=== PATIENT | female | born 1980 | race Caucasian/White ===

== ENCOUNTER 2017-09-28 08:14 | Emergency (ER) | payer SELFPAY ==
[2017-09-28 08:34] VITALS: BP 145/90
--- NOTE | 2017-09-28 08:51 | UC ---
Cardiac HPI - HPI Summary HPI Summary: CHEST PAIN X 1 WEEK PAIN IS MID CHEST, NO RADIATION , MOSTLY AT NIGHT AND KEEPS HER UP , DIFFICULTY BREATHING NO FEVER, NO CHILLS, NO COUGH - History of Current Complaint Chief Complaint: UCGeneralIllness Stated Complaint: DIFFICULTY BREATHING Time Seen by Provider: 09/28/17 08:25 Hx Obtained From: Patient Hx Last Menstrual Period: "I don't get it with the Mirena." Onset/Duration: Gradual Onset, Lasting Weeks - 1, Still Present Timing: Intermittent Episodes Lasting: - FEW HRS Initial Severity: Moderate Current Severity: Moderate Chest Pain Location: Mid Sternal Character: Tightness Aggravating Factor(s): Nothing Alleviating Factor(s): Nothing Associated Signs & Symptoms: Positive: Chest Pain, Anxiety, SOB. Negative: Vision Changes, Recent Stress, Headaches, Numbness, Tingling, Weakness, Dizziness, Swelling, Syncope, Fever, Diaphoresis, Nausea/Vomiting, Palpitations , Cough, Hemoptysis, Back Pain, Abdominal Pain, Calf Pain/Swelling - Allergy/Home Medications Allergies/Adverse Reactions: Allergies Allergy/AdvReac Type Severity Reaction Status Date / Time Amoxicillin Allergy Severe vomiting,ra Verified 09/28/17 08:19 sh Erythromycin Allergy Severe vomiting, Verified 09/28/17 08:19 rash PMH/Surg Hx/FS Hx/Imm Hx Psychological History: Anxiety - Surgical History Surgical History: Yes Surgery Procedure, Year, and Place: Tubal Ligation, 2007 - Family History Known Family History: Negative: Diabetes - Social History Alcohol Use: None Substance Use Type: None Smoking Status (MU): Former Smoker When Did the Patient Quit Smoking/Using Tobacco: 11 years ago Review of Systems Constitutional: Negative Skin: Negative Eyes: Negative ENT: Negative Respiratory: Shortness Of Breath Cardiovascular: Chest Pain Gastrointestinal: Negative Genitourinary: Negative Is Patient Immunocompromised?: No All Other Systems Reviewed And Are Negative: Yes Physical Exam Triage Information Reviewed: Yes Appearance: Well-Appearing, No Pain Distress, Well-Nourished Vital Signs: Initial Vital Signs Temp 98.2 F 09/28/17 08:20 Pulse 77 09/28/17 08:20 Resp 16 09/28/17 08:20 BP 145/90 09/28/17 08:20 Pulse Ox 99 09/28/17 08:20 Vital Signs Reviewed: Yes Eye Exam: Normal Eyes: Positive: Conjunctiva Clear ENT: Positive: Normal ENT inspection, Hearing grossly normal, Pharynx normal Neck exam: Normal Neck: Positive: Supple, Nontender, No Lymphadenopathy Respiratory: Positive: Chest non-tender, Lungs clear, Normal breath sounds, No respiratory distress Cardiovascular: Positive: RRR, No Murmur, Pulses Normal, Brisk Capillary Refill Abdominal Exam: Normal Abdomen Description: Positive: Nontender, Soft. Negative: CVA Tenderness (R), CVA Tenderness (L), Distended, Guarding Bowel Sounds: Positive: Present Skin Exam: Normal - Clinical Impression Provider Diagnoses: ATYPICAL CHEST PAIN Discharge - Discharge Plan Condition: Stable Disposition: HOME Patient Education Materials: Chest Pain (ED), Esophageal Spasm (ED) Referrals: Polina Abbott MD [Primary Care Provider] - 7 Days Additional Instructions: ATYPICAL CHEST PAIN NORMAL EKG, NORMAL VITALS, NORMAL EXAM ? ESOPHAGEAL SPASM : CAN CAUSE SYMPTOMS OF CHEST PAIN AND TIGHTNESS, ALSO ANXIETY CAN CAUSE SIMILAR SYMPTOMS PLEASE FOLLOW UP WITH YOUR PCP IN ONE WEEK FOR ANDRÉS
== END 2017-09-28 09:08 | disposition home or self-care (01) ==
LOC: UCCORT 08:14
DX: R07.89 Other chest pain (principal); Z88.1 Allergy status to other antibiotic agents; Z87.891 Personal history of nicotine dependence
CPT/HCPCS: 93005; 99211; G0463